=== PATIENT | male | born 1995 ===

== ENCOUNTER 2018-10-16 20:07 | Emergency (ER) | payer MEDICAID ==
[2018-10-16 20:16] VITALS: TEMP 98.3
[2018-10-16] MEDS ORDERED: Iohexol 240 (50 ml) PO ONE (21:02)
[2018-10-16] MEDS ORDERED: Iohexol 240 (50 ml) ONE (21:10)
[2018-10-16 21:27] LABS: BASO # 0.1 K/uL (0.0-0.2); BASO % 0.9 % (0.0-2.0); EOS # 0.1 K/uL (0.0-0.7); EOS % 1.4 % (0.0-4.0); HEMOGLOBIN 13.1 g/dL (12.0-18.0); LYMPH # 2.2 K/uL (1.0-4.3); MEAN CELL VOLUME 82.3 fl (80.0-94.0); MEAN CORPUSCULAR HEMOGLOBIN 27.7 pg (27.0-31.0); MEAN CORPUSCULAR HGB CONC 33.6 g/dL (33.0-37.0); MEAN PLATELET VOLUME 8.2 fl (7.2-11.7); MONO # 0.9 K/uL (0.0-0.8); MONO % 9.2 % (0.0-10.0); NEUT # 6.4 K/uL (1.8-7.0); NEUT % 65.5 % (50.0-75.0); NRBC % 0.1 % (0.0-0.0); RBC 4.72 Mil/uL (4.40-5.90); WHITE BLOOD COUNT 9.7 K/uL (4.8-10.8)
[2018-10-16 21:38] LABS: INR 1.1; PROTHROMBIN TIME 12.6 Seconds (9.8-13.1)
[2018-10-16 21:41] LABS: PARTIAL THROMBOPLASTIN TIME 33.7 Seconds (25.6-37.1)
[2018-10-16] MEDS ORDERED: Iohexol 300 100 ML IJ ONE (21:47)
[2018-10-16] MEDS ORDERED: Sodium Chloride 0.9% 50 ML IV ONE (21:47)
[2018-10-16 22:14] LABS: ALB/GLOB RATIO 1.3 (1.0-2.1); ALBUMIN 4.7 g/dL (3.5-5.0); ALT/SGPT 46 U/L (21-72); AST/SGOT 44 U/L (17-59); BLOOD UREA NITROGEN 14 mg/dl (9-20); CALCIUM 9.5 mg/dL (8.4-10.2); GFR NON-AFRICAN AMERICAN > 60
--- NOTE | 2018-10-16 22:21 | ED PDOC ---
HPI: Chest Pain Time Seen by Provider: 10/16/18 20:20 Chief Complaint (Nursing): Chest Pain Chief Complaint (Provider): Chest Pain History Per: Patient History/Exam Limitations: no limitations Onset/Duration Of Symptoms: Days Current Symptoms Are (Timing): Still Present Additional Complaint(s): 22 y/o male with a PMHx of depression, anxiety and hemorrhoids presents to the ED for evaluation of chest pain for the past "few months". Patient reports of having intermittent chest pain and a syncopal episode two days ago that lasted three minutes. Patient did not seek medical attention at this time. Patient additionally reports of having occasional bleeding with bowel movements and an increase in bowel movements at approximately 10 bowel movement daily. Patient notes bowel movements are formed not diarrheal. Patient is also complaining of a 20 pound weight gain in the past year. Patient states he does have anxiety and depression but believes it does not play a role in current symptoms. PMD: Nilson Young Past Medical History Reviewed: Historical Data, Nursing Documentation, Vital Signs Vital Signs: Last Vital Signs Temp 98.3 F 10/16/18 20:13 Pulse 97 H 10/16/18 20:13 Resp 17 10/16/18 20:13 BP 170/89 H 10/16/18 20:13 Pulse Ox 98 10/16/18 20:13 - Medical History PMH: Anxiety, Depression Other PMH: hemorrhoids - Surgical History Surgical History: No Surg Hx - Family History Family History: States: Hypertension - Social History Current smoker - smoking cessation education provided: No Alcohol: None Drugs: Denies - Immunization History Hx Tetanus Toxoid Vaccination: No Hx Influenza Vaccination: No Hx Pneumococcal Vaccination: No - Home Medications Home Medications: Ambulatory Orders Medication Instructions Recorded DiphenhydrAMINE [Benadryl] 2 cap PO Q8 #25 cap 09/27/16 Ibuprofen [Motrin] 1 tab PO Q6 #30 tab 09/27/16 Penicillin VK [Penicillin VK Tab] 2 tab PO BID #28 tab 10/01/16 Sulfamethoxazole/Trimethoprim 1 tab PO BID #20 tab 10/17/18 [Bactrim DS 800 mg-160 mg] - Allergies Allergies/Adverse Reactions: Allergies Allergy/AdvReac Type Severity Reaction Status Date / Time No Known Allergies Allergy Verified 09/27/16 07:55 Review of Systems ROS Statement: Except As Marked, All Systems Reviewed And Found Negative Constitutional: Positive for: Other (weight gain) Cardiovascular: Positive for: Chest Pain Gastrointestinal: Positive for: Hematochezia Physical Exam - Reviewed Nursing Documentation Reviewed: Yes Vital Signs Reviewed: Yes - Physical Exam Appears: Positive for: No Acute Distress Head Exam: Positive for: ATRAUMATIC, NORMOCEPHALIC Skin: Positive for: Normal Color, Warm, Dry Eye Exam: Positive for: Normal appearance, EOMI, PERRL ENT: Positive for: Normal ENT Inspection Neck: Positive for: Normal, Painless ROM, Supple Cardiovascular/Chest: Positive for: Regular Rate, Rhythm. Negative for: Murmur Respiratory: Positive for: Normal Breath Sounds. Negative for: Respiratory Distress Gastrointestinal/Abdominal: Positive for: Normal Exam, Soft. Negative for: Tenderness Back: Positive for: Normal Inspection. Negative for: L CVA Tenderness, R CVA Tenderness, Vertebral Tenderness Extremity: Positive for: Normal ROM. Negative for: Pedal Edema, Deformity Neurological/Psych: Positive for: Awake, Alert, Oriented (x3). Negative for: Motor/Sensory Deficits - Laboratory Results Result Diagrams: 10/16/18 21:15 10/16/18 21:15 Lab Results: PT 12.6 Seconds (9.8-13.1) 10/16/18 21:15 INR 1.1 10/16/18 21:15 APTT 33.7 Seconds (25.6-37.1) 10/16/18 21:15 Total Bilirubin 0.5 mg/dl (0.2-1.3) 10/16/18 21:15 AST 44 U/L (17-59) 10/16/18 21:15 ALT 46 U/L (21-72) 10/16/18 21:15 Alkaline Phosphatase 89 U/L (38-126) 10/16/18 21:15 Total Protein 8.2 G/DL (6.3-8.2) 10/16/18 21:15 Albumin 4.7 g/dL (3.5-5.0) 10/16/18 21:15 Globulin 3.5 gm/dL (2.2-3.9) 10/16/18 21:15 Albumin/Globulin Ratio 1.3 (1.0-2.1) 10/16/18 21:15 - ECG O2 Sat by Pulse Oximetry: 98 (RA) Pulse Ox Interpretation: Normal Medical Decision Making Medical Decision Making: Time: 2026 Impression: 22 y/o male with multiple somatic complaints and syncopal episode Plan: -- CT Abd/Pelvis PO & IV Contrast -- CT Head w/o Contrast -- EKG -- Alcohol Serum -- CMP -- Urine Drug Screen -- Lact Acid, Plasma -- Magnesium -- TSH -- CBC with Differentials -- PTT -- Prothrombin Time -- Iohexol 50 ml PO -- Heplock Insertion -- Urinalysis 1018: Name: RUDI OSORIO Exam Date: Oct 16, 2018 9:59:11 PM EDT Modality Type: CT Description: CT - BRAIN WITH CORONAL AND SAGITTAL MPRS Gender: M Laterality: Not applicable : 96 Referring Physician: Edilberto West EXAM: CT Head Without IV contrast. CLINICAL HISTORY: Syncope TECHNIQUE: Axial computed tomography images of the head/brain without intravenous contrast. COMPARISON: None provided. FINDINGS: BRAIN: No acute intraparenchymal hemorrhage. No mass lesion. No CT evidence for acute territorial infarct. No midline shift or extra-axial collections. VENTRICLES: No hydrocephalus. ORBITS: The orbits are unremarkable. SINUSES AND MASTOIDS: The paranasal sinuses and mastoid air cells are clear. BONES: No fracture. SOFT TISSUES: Unremarkable. IMPRESSION: No acute intracranial abnormality. Electronically signed on Oct 16, 2018 10:18:45 PM EDT by: Flavia Crawford M.D., Certified by ABR, Diagnostic Radiology 2405: Name: RUDI OSORIO Exam Date: Oct 16, 2018 11:16:00 PM EDT Modality Type: CT\\SR Description: CT - ABDOMEN AND PELVIS WITH CORONAL AND SAGITTAL MPRS Gender: M Laterality: Not applicable : 96 Referring Physician: Edilberto West CT SCAN OF THE ABDOMEN AND PELVIS WITH CONTRAST. CLINICAL HISTORY: Abdominal pain. TECHNIQUE: Multiple axial and coronal CT images were obtained through the abdomen and pelvis after administration of intravenous and oral contrast material. COMMENTS: Mild thickening of the splenic flexure of the colon. Uncomplicated colonic diverticulosis. The liver is of uniform attenuation without mass or defect. There is no intra or extrahepatic biliary ductal dilatation. The spleen is normal. The gallbladder is within normal limits. The pancreas is of normal contour and attenuation characteristics. There is no evidence of adrenal mass. Both kidneys demonstrate prompt and equal nephrograms. The kidneys are normal in size, shape and configuration. There is no evidence of renal or ureteral mass. No renal or ureteral calculi are identified. There is no hydroureter or hydronephrosis. No evidence for appendicitis. There is no other bowel wall thickening. No evidence for small or large bowel obstruction. There is no evidence of abdominal ascites or lymphadenopathy. There is no evidence of intrinsic or extrinsic bladder mass. There is no pelvic ascites or lymphadenopathy. Images of the lung bases show no evidence of pleural or parenchymal mass. There are no pleural effusions. The bony structures are free of lytic or blastic lesions. IMPRESSION: Mild thickening of the splenic flexure of the colon. Under distention, spasm versus mild colitis. Thank you for your kind referral of this patient. Electronically signed on Oct 17, 2018 12:05:32 AM EDT by: Sarah Contreras M.D., Certified by ABR, MSK, Neuroradiology 0020: Patient is stable for discharge. Diagnoses UTI and colitis. Patient was to encourage to follow up with his PMD who he has not seen yet. GI referral provided Scribe Attestation: Documented by Yolande Covarrubias, acting as a scribe Catia West MD. Provider Scribe Attestation: All medical record entries made by the Scribe were at my direction and personally dictated by me. I have reviewed the chart and agree that the record accurately reflects my personal performance of the history, physical exam, medical decision making, and the department course for this patient. I have also personally directed, reviewed, and agree with the discharge instructions and disposition. Disposition - Clinical Impression Clinical Impression: UTI (urinary tract infection), Colitis - Disposition Referrals: Harvinder Clark MD [Staff Provider] - Disposition Time: 00:30 Condition: IMPROVED Prescriptions: Sulfamethoxazole/Trimethoprim [Bactrim DS 800 mg-160 mg] 1 tab PO BID #20 tab Instructions: Urinary Tract Infections in Adults, Colitis Forms: [facility] (Armenian)
[2018-10-16 23:21] LABS: SQUAMOUS EPITHIAL 1 /hpf (0-5); URINE BILIRUBIN NEGATIVE (NEGATIVE); URINE BLOOD NEGATIVE (NEGATIVE); URINE CLARITY SLIGHTY-CLOUDY (Clear); URINE COLOR STRAW (YELLOW); URINE GLUCOSE (UA) NEG (NEGATIVE); URINE LEUKOCYTE ESTERASE SMALL Leu/uL (Negative); URINE PROTEIN NEGATIVE (NEGATIVE); URINE UROBILINOGEN 0.2-1.0 mg/dL (0.2-1.0)
[2018-10-16 23:37] LABS: BARBITURATES, UR NEGATIVE (NEGATIVE); BENZODIAZEPINES, UR NEGATIVE (NEGATIVE); OPIATES, UR NEGATIVE (NEGATIVE); PHENCYCLIDINE, UR NEGATIVE (NEGATIVE)
[2018-10-17 01:08] VITALS: BP 141/96; PULSE 83; RESP 18
[2018-10-17 05:36] VITALS: O2SAT 98
--- NOTE | 2018-10-17 08:58 | CT ---
Date of service: 10/16/2018 PROCEDURE: CT HEAD WITHOUT CONTRAST. HISTORY: syncope COMPARISON: None available. TECHNIQUE: Axial computed tomography images were obtained through the head/brain without intravenous contrast. Radiation dose: Total exam DLP = 728.18 mGy-cm. This CT exam was performed using one or more of the following dose reduction techniques: Automated exposure control, adjustment of the mA and/or kV according to patient size, and/or use of iterative reconstruction technique. FINDINGS: HEMORRHAGE: No intracranial hemorrhage. BRAIN: Normal garcia-white matter differentiation and density are appreciated throughout the cerebrum and cerebellum with the brainstem appearing unremarkable as well. There is no mass effect. There is no suspicious extra-axial fluid collection and the midline brain anatomy appears diffusely unremarkable. VENTRICLES: Unremarkable. No hydrocephalus. CALVARIUM: No destructive bony lesion or displaced fracture identified including through the skullbase. PARANASAL SINUSES: Unremarkable as visualized. No significant inflammatory changes. MASTOID AIR CELLS: Unremarkable as visualized. No inflammatory changes. OTHER FINDINGS: None. IMPRESSION: Normal CT of the Head. Concordant preliminary report from [place], 10/16/2018, 10:18 p.m..
--- NOTE | 2018-10-17 09:43 | CT ---
Date of service: 10/16/2018 PROCEDURE: CT Abdomen and Pelvis with contrast HISTORY: abd pain COMPARISON: None. TECHNIQUE: Following oral and intravenous contrast administration, a CT examination of the abdomen and pelvis was performed from the domes of the diaphragms to the symphysis pubis with reformatted datasets provided not only axial but also sagittal and coronal series. Contrast dose: Omnipaque 300, 90 cc Radiation dose: Total exam DLP = 376.93 mGy-cm. This CT exam was performed using one or more of the following dose reduction techniques: Automated exposure control, adjustment of the mA and/or kV according to patient size, and/or use of iterative reconstruction technique. FINDINGS: LOWER THORAX: Unremarkable. LIVER: Unremarkable. No gross lesion or ductal dilatation. GALLBLADDER AND BILE DUCTS: Unremarkable. PANCREAS: Unremarkable. No gross lesion or ductal dilatation. SPLEEN: Unremarkable. ADRENALS: Unremarkable. No mass. KIDNEYS AND URETERS: Unremarkable. No hydronephrosis. No solid mass. VASCULATURE: Unremarkable. No aortic aneurysm. No aortic atherosclerotic calcification or mural plaque present. BOWEL: The splenic flexure is collapsed limiting its evaluation in terms of mural thickness. Potential colitis difficult to completely exclude but is not favored. No pericolic reaction or fluid collection is associated. Remaining bowel appears nonfocal grossly with relatively prominent fecal loading identified at the ascending colon through distal transverse segments. The bowel is otherwise unremarkable appearing including the small bowel. The stomach is unopacified but instead is partially distended with retained fluid and food. APPENDIX: Normal appendix. PERITONEUM: Unremarkable. No free fluid. No free air. LYMPH NODES: Unremarkable. No enlarged lymph nodes. BLADDER: Unremarkable. REPRODUCTIVE: Unremarkable. BONES: No acute fracture. OTHER FINDINGS: None. IMPRESSION: Borderline segmental colitis splenic flexure though the segments collapsed and likely unremarkable. No associated local reactive changes or ascites. No bowel obstruction. No additional potential acute changes otherwise. Concordant preliminary report from [place], 10/17/2018, 12:05 a.m..
--- NOTE | 2018-10-17 10:15 | CARD ---
APPROVED REPORT Date of service: 10/16/2018 EKG Measurement Heart [id number] <Conclusion> Normal sinus rhythm Early repolarization Normal ECG
== END 2018-10-17 00:32 | disposition home or self-care (01) ==
LOC: H.ER 20:07
DX: N39.0 Urinary tract infection, site not specified (principal); K52.9 Noninfective gastroenteritis and colitis, unspecified; F41.9 Anxiety disorder, unspecified; F32.9 Major depressive disorder, single episode, unspecified
CPT/HCPCS: 70450; 74177; 80053; 80320; 80324; 80345; 80346; 80349; 80353; 80358; 80361; 81003; 83605; 83735; 83992; 84443; 85025; 85610; 85730; 93005; 99283; Q9966; Q9967